=== PATIENT | male | born 1975 | race African-American/Black ===

== ENCOUNTER 2018-12-06 07:10 | Emergency (ER) | payer OTHER ==
[~2018-12-06] VITALS: Ht 170.2 cm; Wt 119.3 kg
[2018-12-06 07:20] VITALS: BP 141/75
[2018-12-06] MEDS ORDERED: IBUP-1060 PO (07:42)
[2018-12-06] MEDS ORDERED: AMOX1TAB61 PO (07:42)
--- NOTE | 2018-12-06 07:42 | PHYS DOC ---
Past Medical History Past Medical History: No Pertinent History Past Surgical History: No Surgical History Alcohol Use: None Drug Use: None Adult General Chief Complaint Chief Complaint: RINGING IN EARS HPI HPI Patient is a 43 year old male who presents with complaining of right ear ringing. Patient states he had right ear pain started couple days ago and uses [id number] eyedrop and complaining of ringing in right ear with decrease of hearing. Patient states his ear pain is improved. Patient denies fever and chills, since URI, drainage of pus of the ear, history of ear infection. Review of Systems Review of Systems Constitutional: Denies fever or chills [] Eyes: Denies change in visual acuity, redness, or eye pain [] HENT: Denies nasal congestion or sore throat, reports yesterday [] Respiratory: Denies cough or shortness of breath [] Cardiovascular: No additional information not addressed in HPI [] GI: Denies abdominal pain, nausea, vomiting, bloody stools or diarrhea [] : Denies dysuria or hematuria [] Musculoskeletal: Denies back pain or joint pain [] Integument: Denies rash or skin lesions [] Neurologic: Denies headache, focal weakness or sensory changes [] Endocrine: Denies polyuria or polydipsia [] All other systems were reviewed and found to be within normal limits, except as documented in this note. Allergies Allergies Allergies Coded Allergies Type Severity Reaction Last Updated Verified No Known Drug Allergies 12/06/18 No Physical Exam Physical Exam Constitutional: Well developed, well nourished, no acute distress, non-toxic appearance. [] HENT: Normocephalic, atraumatic, right ear canal with erythema and tenderness, obscured tympanic membrane with fluid from eyedrop, oropharynx moist, no oral exudates, nose normal. [] Eyes: PERRLA, EOMI, conjunctiva normal, no discharge. [] Neck: Normal range of motion, no tenderness, supple, no stridor. [] Cardiovascular:Heart rate regular rhythm, no murmur [] Lungs & Thorax: Bilateral breath sounds clear to auscultation [] Neurologic: Alert and oriented X 3, normal motor function, normal sensory function, no focal deficits noted. [] Psychologic: Affect normal, judgement normal, mood normal. [] Current Patient Data Vital Signs Vital Signs Date Time Temp Pulse Resp B/P (MAP) Pulse Ox O2 Delivery O2 Flow Rate FiO2 12/06/18 07:20 98.4 71 16 141/75 (97) 100 Room Air 98.4 EKG EKG [] Radiology/Procedures Radiology/Procedures [] Course & Med Decision Making Course & Med Decision Making I've spoken with the patient and/or caregivers. I've explained the patient's condition, diagnosis and treatment plan based on information available to me at this time. I've answered the patient's and/or caregivers questions and addressed any concerns. The patient and/or caregivers have a good understanding the patient's diagnosis, condition and treatment plan as can be expected at this point. Vital signs have been stabilized. The patient's condition is stable for discharge from the emergency department. The patient will pursue further outpatient evaluation with her primary care provider or other designated consulting physician as outlined in the discharge instructions. Patient and/or caregivers are agreeable to this plan of care and follow-up instructions have been explained in detail. The patient and/or caregivers have received these instructions in written format and expressed understanding of these discharge instructions. The patient and her caregivers are aware that if any significant change in condition or worsening of symptoms should prompt him to immediately return to this of the closest emergency department. If an emergent department is not readily available I would encourage him to call 911. Kami Disclaimer Kami Disclaimer This electronic medical record was generated, in whole or in part, using a voice recognition dictation system. Departure Departure Impression: Primary Impression: Right otitis media Disposition: 01 HOME, SELF-CARE (at 0 [phone]) Condition: STABLE Referrals: CHEYENNE NAIR (PCP) Patient Instructions: Otitis Media, Adult Additional Instructions: Drink plenty of liquids Follow-up with your primary care physician in 3-5 days Return to ER if not getting better Scripts Amoxicillin/Potassium Clav (AUGMENTIN 875-125 TABLET) 1 Each Tablet 1 TAB PO Q12HR, #20 TAB Prov: CRISTIAN VERA MD 12/06/18 Ibuprofen (IBUPROFEN) 800 Mg Tablet 800 MG PO PRN Q8HRS PRN for INFLAMMATION, #20 TAB Prov: CRISTIAN VERA MD 12/06/18 Problem Qualifiers Primary Impression: Right otitis media Otitis media type: unspecified Qualified Codes: H66.91 - Otitis media, unspecified, right ear KOUSHA,CRISTIAN MD Dec 06, 2018 07:42
== END 2018-12-06 08:00 | disposition home or self-care (01) ==
LOC: ER 07:10
DX: H66.91 Otitis media, unspecified, right ear (principal)
CPT/HCPCS: 99283

== ENCOUNTER 2019-09-13 18:25 | Emergency (ER) | payer OTHER ==
[~2019-09-13 18:25] MED LIST: AMOX1TAB61 PO; IBUP-1060 PO
[2019-09-13 19:05] VITALS: BP 150/65
[2019-09-13] MEDS ORDERED: ONDANSETRON PF 4 MG/2 ML VIAL. IVP ONE (19:45)
[2019-09-13] MEDS ORDERED: MORPHINE SULFATE 4 MG/ML VIAL. IV ONE (19:45)
[2019-09-13 19:47] LABS: BASO # 0.1 x10^3/uL (0.0-0.2); BASO % 1 % (0-3); EOS % 0 % (0-3); HEMATOCRIT 41.7 % (39.0-53.0); HEMOGLOBIN 14.1 g/dL (13.0-17.5); LYMPH # 1.1 x10^3/uL (1.0-4.8); LYMPH % 13 % (24-48); MEAN CORPUSCULAR HEMOGLOBIN 28 pg (25-35); MEAN CORPUSCULAR HGB CONC 34 g/dL (31-37); MEAN CORPUSCULAR VOLUME 84 fL (79-100); MONO # 0.4 x10^3/uL (0.0-1.1); MONO % 5 % (0-9); NEUT # 6.6 x10^3/uL (1.8-7.7); NEUT % 80 % (31-73); PLATELET COUNT 273 x10^3/uL (140-400); RED BLOOD COUNT 4.96 x10^6/uL (4.30-5.70); RED CELL DISTRIBUTION WIDTH 13.1 % (11.5-14.5); WHITE BLOOD COUNT 8.3 x10^3/uL (4.0-11.0)
[2019-09-13 19:57] LABS: CREATININE 1.3 mg/dL (0.7-1.3); GFR 73.3; POTASSIUM 3.9 mmol/L (3.5-5.1)
--- NOTE | 2019-09-13 20:06 | RAD ---
4 view study of the right knee Clinical indications: Right knee dislocation. FINDINGS: The patella is dislocated superiorly. This is consistent with a patellar tendon rupture. No acute fracture is evident. No lytic process is seen. IMPRESSION: Patellar tendon rupture with superior dislocation of the patella. Electronically signed by: Rodrigue Ferguson MD (09/13/2019 8:04 PM) [facility]
[2019-09-13] MEDS ORDERED: HYDR-2759 PO (20:36)
--- NOTE | 2019-09-13 20:48 | RAD ---
Sonography of the right knee Clinical indications: Right knee pain.. Superior dislocation of patella. FINDINGS: There is disruption of the patellar tendon from the inferior pole of the patella. The gap measures 13 mm in length and is filled with nonvascular echogenic material consistent with a hematoma. This is consistent with a patellar tendon tear. IMPRESSION: Patellar tendon tear at the attachment to the inferior pole of the patella. Electronically signed by: Rodrigue Ferguson MD (09/13/2019 8:45 PM) [facility]
--- NOTE | 2019-09-13 23:17 | PHYS DOC ---
Past Medical History Past Medical History: No Pertinent History Past Surgical History: No Surgical History Alcohol Use: None Drug Use: None Adult General Chief Complaint Chief Complaint: KNEE INJURY HPI HPI Patient is a 44 year old -[place] male presents with acute right knee pain with possible patellar dislocation. Patient was jumping up and down while watching on the ground while celebrating [employer] football game when he felt a sudden pop swelling noted. Patient is able to ambulate but reports difficulty extending leg. No other injuries or complaints. Denies any prior injury.[] Review of Systems Review of Systems Review of symptoms as per history of present illness All other systems were reviewed and found to be within normal limits, except as documented in this note. Current Medications Current Medications Current Medications Medications (Trade) Dose Ordered Sig/Candace Start Time Stop Time Status Last Admin Dose Admin Morphine Sulfate (Morphine Sulfate) 4 mg 1X ONCE 09/13/19 19:45 09/13/19 19:46 DC 09/13/19 19:54 4 MG Ondansetron HCl (Zofran) 4 mg 1X ONCE 09/13/19 19:45 09/13/19 19:46 DC 09/13/19 19:53 4 MG Allergies Allergies Allergies Coded Allergies Type Severity Reaction Last Updated Verified No Known Drug Allergies 12/06/18 No Physical Exam Physical Exam Constitutional: Well developed, well nourished, no acute distress, non-toxic appearance. [] HENT: Normocephalic, atraumatic, bilateral external ears normal, oropharynx moist, no oral exudates, nose normal. [] Eyes: PERRLA, EOMI, conjunctiva normal, no discharge. [] Neck: Normal range of motion, no tenderness, supple, no stridor. [] Extremities: Right lower extremity, right knee, deformity noted, patella is anterior and high. Range of motion is intact.[] Neurologic: Alert and oriented X 3, lower extremity, sensation intact, patient unable to extend leg. [] Psychologic: Affect normal, judgement normal, mood normal. [] Current Patient Data Vital Signs Vital Signs Date Time Temp Pulse Resp B/P (MAP) Pulse Ox O2 Delivery O2 Flow Rate FiO2 09/13/19 19:54 17 98 Room Air 09/13/19 19:05 99.7 108 150/65 (93) 99.7 Lab Values Laboratory Tests Test 09/13/19 19:35 White Blood Count 8.3 x10^3/uL (4.0-11.0) Red Blood Count 4.96 x10^6/uL (4.30-5.70) Hemoglobin 14.1 g/dL (13.0-17.5) Hematocrit 41.7 % (39.0-53.0) Mean Corpuscular Volume 84 fL (79-100) Mean Corpuscular Hemoglobin 28 pg (25-35) Mean Corpuscular Hemoglobin Concent 34 g/dL (31-37) Red Cell Distribution Width 13.1 % (11.5-14.5) Platelet Count 273 x10^3/uL (140-400) Neutrophils (%) (Auto) 80 % (31-73) H Lymphocytes (%) (Auto) 13 % (24-48) L Monocytes (%) (Auto) 5 % (0-9) Eosinophils (%) (Auto) 0 % (0-3) Basophils (%) (Auto) 1 % (0-3) Neutrophils # (Auto) 6.6 x10^3/uL (1.8-7.7) Lymphocytes # (Auto) 1.1 x10^3/uL (1.0-4.8) Monocytes # (Auto) 0.4 x10^3/uL (0.0-1.1) Eosinophils # (Auto) 0.0 x10^3/uL (0.0-0.7) Basophils # (Auto) 0.1 x10^3/uL (0.0-0.2) Sodium Level 139 mmol/L (136-145) Potassium Level 3.9 mmol/L (3.5-5.1) Chloride Level 102 mmol/L (98-107) Carbon Dioxide Level 28 mmol/L (21-32) Anion Gap 9 (6-14) Blood Urea Nitrogen 13 mg/dL (8-26) Creatinine 1.3 mg/dL (0.7-1.3) Estimated GFR (Cockcroft-Gault) 73.3 Glucose Level 110 mg/dL (70-99) H Calcium Level 9.0 mg/dL (8.5-10.1) Laboratory Tests 09/13/19 19:35 Laboratory Tests 09/13/19 19:35 EKG EKG [] Radiology/Procedures Radiology/Procedures [Right knee x-ray: Infrapatellar rupture with high riding patella Soft tissue ultrasound right lower extremity: Patellar rupture inferior pole of patella] Course & Med Decision Making Course & Med Decision Making Pertinent Labs and Imaging studies reviewed. (See chart for details) [Case reviewed with Dr. Babb. Patient placed in the immobilizer, given crutches and a medication. Patient instructed follow-up with Dr. Babb in the office later this week ] Dragon Disclaimer Dragon Disclaimer This electronic medical record was generated, in whole or in part, using a voice recognition dictation system. Departure Departure Impression: Primary Impression: Patellar tendon rupture Disposition: HOME, SELF-CARE Condition: GOOD Patient Instructions: Patellar Tendon Tear/Disruption with [facility] Additional Instructions: Please wear knee immobilizer and use crutches with partial weightbearing. Apply ice to affected area and take hydrocodone as needed for pain. Contact Dr. Babb on-call for orthopedic surgery and schedule follow-up appointment later this week. Scripts Hydrocodone/Acetaminophen (Hydrocodone-Acetamin 5-325 mg) 1 Each Tablet 1 EACH PO Q6-8HRS PRN for PAIN, #20 TAB Prov: PARK QUAN DO 09/13/19 PARK QUAN DO Sep 13, 2019 23:17
[2019-09-15] MEDS ORDERED: HYDR-2763 PO (15:12)
== END 2019-09-13 21:00 | disposition home or self-care (01) ==
LOC: ER 18:25
DX: S76.111A Strain of right quadriceps muscle, fascia and tendon, initial encounter (principal); X50.9XXA Other and unspecified overexertion or strenuous movements or postures, initial encounter; Y93.39 Activity, other involving climbing, rappelling and jumping off; Y92.89 Other specified places as the place of occurrence of the external cause; Y99.8 Other external cause status
CPT/HCPCS: 29505; 36415; 73564; 76882; 80048; 85025; 96374; 96375; 99285; J2270; J2405

== ENCOUNTER 2019-09-16 10:03 | Day surgery (SDC) | payer OTHER ==
[~2019-09-16] VITALS: Ht 170.2 cm; Wt 125.0 kg
[~2019-09-16 10:03] MED LIST changes: +DEXAMETHASONE SOD PHOS 4 MG/ML VIAL ONE; +HYDR-2759 PO; +HYDR-2763 PO; +HYDROmorphone 2 MG/ML VIAL IV PRN; +IV RINGERS,LACTATED 1000ML 1,000 ML IV SCH; +LIDOCAINE 1% PF 2 ML VIAL. ID PRN; +LIDOCAINE 2% PF 5 ML VIAL. ONE; +MIDAZOLAM HCL/PF 2 MG/2 ML VIAL. ONE; +ONDANSETRON PF 4 MG/2 ML VIAL. IV PRN; +ONDANSETRON PF 4 MG/2 ML VIAL. ONE; +PROCHLORPERAZINE 10 MG/2 ML VIAL. IV PRN; +PROPOFOL 20 ML IV ONE; +ceFAZolin SODIUM 3 GM in IV DEXTROSE 5% 100ML 100 ML IV PRN; +fentaNYL PF VIAL 100 MCG/2 ML VIAL IV PRN; +fentaNYL PF VIAL 100 MCG/2 ML VIAL ONE
[2019-09-16] MEDS ORDERED: BUPIVACAINE MPF 0.5% 30 ML VIAL. ONE (10:19)
[2019-09-16] MEDS ORDERED: LIDOCAINE 1% PF 30 ML VIAL. ONE (10:19)
--- NOTE | 2019-09-16 12:22 | DISCH ---
DISCHARGE INSTRUCTIONS Condition on Discharge Condition on Discharge: Stable Activity After Discharge Activity Instructions for Disc: Other, see below Other activity instructions: remain in knee brace Bathing Instructions: Shower-keep dressing dry Diet after Discharge Diet after Discharge: Regular Wound Incision Care Wound/Incision Care: Ice to area for comfort, Keep wound/cast CDI, Change dressing Contacting the [facility]te[facility] after DC Call your doctor for: Concerns you may have Follow-Up Follow up with: Holley in 2 wks LAURA MORALES II, MD Sep 16, 2019 12:22
[2019-09-16] MEDS ORDERED: DEXAMETHASONE SOD PHOS 4 MG/ML VIAL ONE (12:26)
[2019-09-16] MEDS ORDERED: PROPOFOL 20 ML IV ONE (12:26)
[2019-09-16] MEDS ORDERED: fentaNYL PF VIAL 100 MCG/2 ML VIAL ONE (13:01)
[2019-09-16] MEDS ORDERED: SEVOFLURANE 61 TO 120 MINUTES. IH ONE (13:20)
--- NOTE | 2019-09-16 13:21 | PDOC4 ---
Operative Note Operative Note Date of procedure: 09/16/2019 Surgeon: Deni Morales Asst.: Larry Whitney Preoperative diagnosis: Right patellar tendon rupture Postoperative diagnosis: Same Procedure performed: Open right patellar tendon repair Anesthesia: Gen. Complications: none Blood loss: 10mL Tourniquet time: less than 1 hr Findings: Acute patellar tendon rupture Reason for procedure: Patient is very pleasant gentleman who is referred to my clinic from the emergency department after he suffered a fall down some stairs, he presented to the emergency department with knee pain and inability to straighten his leg. Clinical and radiographic examination were consistent with patellar of her tendon rupture and we had a discussion of the risks, benefits, alternatives to the above surgery and he wished to proceed. Description of procedure: Patient was greeted in the preoperative area by myself for the correct extremity was verified and marked. He was taken to the operative suite and his antibiotics were started as he was brought back. Once in the operative room, he was transferred gently supine to the operative table and secured the bed with all pressure points padded. Nonsterile tourniquet was taped in place to his operative leg. We then proceeded prep and drape operative extremity in our usual sterile fashion conductor standard preoperative timeout. After this, I palpated for his patella and ameena a line on skin for an anterior midline incision, extremity was exsanguinated with an Esmarch and tourniquet insufflated to 250 mmHg. After this, I incised skin with a scalpel and dissected subcutaneous tissues tissue with electrocautery until identified the patella and the patellar tendon. I used a rongeur to debride the hematoma and prepared my bony bed at the patella. We thoroughly irrigated out his knee at this point. I then used 2 #2 ultra ethan in a locked running fashion from superior to inferior at his patellar tendon giving me 4 limbs at the tear site. I then drilled 3 holes through his patella and used a [employer] suture passer to shuttle the sutures through these 3 holes and tied them over top of the superior patella. The suture limbs were then tied to each other again. After this, #2 Ethibond in a simple interrupted fashion was used to repair the retinacular tears medially and laterally. The operative prasad and irrigated again. I injected my local anesthetic mixture into the vandana-incisional area. Tourniquet had been let down, hemostasis achieved with electrocautery. We then close fascia with simple interrupted 0 Vicryl followed by inverted interrupted 2-0 Vicryl for subcutaneous tissue and wilner for skin. Prior to wound closure, all counts were correct 2. No complications. At the conclusion, he was awakened from anesthesia after a sterile soft bulky dressing was applied and the inch knee brace locked in extension. He was transferred gently supine to the recovery room cart and taken to the PACU in a stable and extubated condition. Postoperative plan is to discharge him home, nonweightbearing. I will see him back here in 2 weeks, sooner should a problem arise. We will get him started on erapy. DENI MORALES II, MD Sep 16, 2019 13:21
[2019-09-16] MEDS ORDERED: OXYC-325 PO (13:38)
[2019-09-16] MEDS ORDERED: DOCU-109 PO (13:39)
[2019-09-16] MEDS ORDERED: oxyCODONE/APAP 5/325 1 TAB TABLET PO ONE (14:00)
[2019-09-16] MEDS: MORPHINE SULFATE 2 MG/ML VIAL. IV PRN ×2 (14:35→14:46)
[2019-09-16] MEDS: fentaNYL PF VIAL 100 MCG/2 ML VIAL IV PRN ×2 (14:50→15:05)
[2019-09-16 15:11] VITALS: BP 159/91
== END 2019-09-16 15:52 | disposition home or self-care (01) ==
LOC: SURG 10:03
PROVIDERS: ATTEND Orthopaedic Surgery Sports Medicine
DX: S76.111A Strain of right quadriceps muscle, fascia and tendon, initial encounter (principal); E78.5 Hyperlipidemia, unspecified; E55.9 Vitamin D deficiency, unspecified; Z98.890 Other specified postprocedural states; Z82.49 Family history of ischemic heart disease and other diseases of the circulatory system; W10.9XXA Fall (on) (from) unspecified stairs and steps, initial encounter; Y93.89 Activity, other specified; Y92.89 Other specified places as the place of occurrence of the external cause; Y99.8 Other external cause status; Z79.899 Other long term (current) drug therapy; Z83.3 Family history of diabetes mellitus
CPT/HCPCS: 27380; J1100; J2001; J2250; J2270; J2405; J2704; J3010; J3490

== ENCOUNTER → 2020-12-09 | Outpatient (CLI) | payer OTHER ==
[~2020-12-09] MED LIST changes: -DEXAMETHASONE SOD PHOS 4 MG/ML VIAL ONE; +DOCU-109 PO; -HYDROmorphone 2 MG/ML VIAL IV PRN; -IV RINGERS,LACTATED 1000ML 1,000 ML IV SCH; -LIDOCAINE 1% PF 2 ML VIAL. ID PRN; -LIDOCAINE 2% PF 5 ML VIAL. ONE; -MIDAZOLAM HCL/PF 2 MG/2 ML VIAL. ONE; -ONDANSETRON PF 4 MG/2 ML VIAL. IV PRN; -ONDANSETRON PF 4 MG/2 ML VIAL. ONE; +OXYC-325 PO; -PROCHLORPERAZINE 10 MG/2 ML VIAL. IV PRN; -PROPOFOL 20 ML IV ONE; -ceFAZolin SODIUM 3 GM in IV DEXTROSE 5% 100ML 100 ML IV PRN; -fentaNYL PF VIAL 100 MCG/2 ML VIAL IV PRN; -fentaNYL PF VIAL 100 MCG/2 ML VIAL ONE
--- NOTE | 2020-12-09 17:04 | KCIC ---
XR FOOT_LEFT 3 VIEWS DATE: 12/09/2020 4:12 PM INDICATION: LEFT FOOT PAIN. Left heel pain in recent weeks after hitting foot on furniture / Histor y: COMPARISON: None. FINDINGS: Bones: There is no evidence of acute fracture or dislocation. Joints: The joint spaces are normal. Miscellaneous: None. IMPRESSION: No evidence of acute fracture. Electronically signed by: Binu Ma MD (12/09/2020 5:02 PM) [id number]
== END ==
LOC: KCIC 16:09
PROVIDERS: ATTEND Family Medicine
DX: M79.672 Pain in left foot (principal)
CPT/HCPCS: 73630